=== PATIENT | female | born 1990 ===

== ENCOUNTER 2020-03-30 17:52 | Emergency (ER) | payer OTHER ==
[~2020-03-30] VITALS: Ht 165.1 cm; Wt 68.0 kg
--- NOTE | 2020-03-30 18:34 | NUR ---
Patient discharged to home in stable condition. Written and verbal after care instructions given. Patient verbalizes understanding of instructions. Stressed follow up or return to ER for worsening s/s.
== END 2020-03-30 18:34 | disposition home or self-care (01) ==
LOC: ER 17:55
DX: Z20.828 Contact with and (suspected) exposure to other viral communicable diseases (principal)
CPT/HCPCS: 99283; U0003; A4663